=== PATIENT | female | born 1990 | race Caucasian/White ===

== ENCOUNTER 2016-08-19 05:00 | Inpatient (IN) | payer OTHER ==
--- NOTE | ~2016-08-19 | PN ---
Unit #: [id number] #: [id number] Patient: SHANA FERRELL [id number] [facility] [address] [place] [address] [id number] MR#: [id number] NAME: SHANA FERRELL. ROOM: [facility] Age: 25 Sex: F Admission Date: 08/19/2016 : 1990 Attending Physician: Dayna Mcgee M.D. Admitting Physician: Dayna Mcgee M.D. Primary Care Physician: Gerardo Arce Jr., D.OAmanda FELIPE PROGRESS NOTES DATE 08/21/2016 DISCUSSION Ms. Ferrell is a 25-year-old white female who was seen today and chart was reviewed and case was discussed with the staff. The patient has been anxious, withdrawn though reports doing somewhat better and has been able to get up and socialize and interact and appears to be showing improvement in her mood and functioning. The patient has been taking medications and tolerating them fairly well with no reported side effects. MENTAL STATUS EXAMINATION Young white female who was casually dressed with fair personal hygiene, appears to be in no acute distress or discomfort. She was awake and alert on interaction with intact orientation. Her mood was anxious with congruent affect. She denies any suicidal or homicidal ideations. Her insight and judgement remains slightly impaired. TREATMENT PLAN 1. We will continue her on her treatment protocol. We will monitor her response and make further adjustments as needed. 2. We will continue to follow up. Dictated by... Crescencio Queen/renuka TD: 08/22/2016 03:46 JOB #: [id number] Unit #: [id number] #: [id number] Patient: SHANA FERRELL PROGRESS NOTES Page 1 of 1 X Dayna Mcgee MD PROGRESS NOTE
--- NOTE | ~2016-08-19 | PA ---
Unit #: [id number] #: [id number] Patient: SHANA FERRELL [id number] [facility] [address] [place] [address] [id number] MR#: [id number] NAME: SHANA FERRELL ROOM: [facility] Age: 25 Sex: F Admission Date: 08/19/2016 : 1990 Date of Assessment: Attending Physician: Dayna Mcgee M.D. Admitting Physician: Dayna Mcgee M.D. Primary Care Physician: Gerardo Arce Jr., D.OAmanda PSYCHIATRIC ASSESSMENT DATE OF SERVICE 08/19/2016. IDENTIFYING DATA Ms. Ferrell is a 25-year-old white female, who is a resident of [place], [place], and was transferred to us from [facility] Emergency Room on a voluntary basis. CHIEF COMPLAINT "I've been depressed and I was having suicidal thoughts." HISTORY OF PRESENT ILLNESS Ms. Ferrell is a 25-year-old white female, who was transferred to us from emergency room at [facility] where she presented stating that she was depressed and that she has been having suicidal ideation with no specific plan and she showed up to work intoxicated and they sent her home and that she has been drinking three mixed drinks with vodka and snorting half a bump of ice and reports that she has not been sober for the past few days and she has been depressed because she is currently from her in the process of getting a divorce and she lost her mother a year ago and that she has been having dreams about her mother and she cannot keep it together, and she reports that she is not able to contract for safety, even though she does not have a specific suicidal plan. The patient did disclose that she has several pocket knives and has a hand gun in home and as such, was seen to be a significant threat to herself and therefore, recommendation for inpatient level of care for safety and stabilization was made and the patient was transferred to us. SUBSTANCE ABUSE HISTORY The patient reports history of alcohol, cannabis, and methamphetamine abuse, though she reports alcohol to be her drug of choice and has been drinking regularly. PAST PSYCHIATRIC HISTORY The patient has had a history of outpatient psychiatric treatment through [facility], and review of the medical records indicate that she has been on Effexor and Celexa, but has not been taking Effexor stating that it has been giving her side effects. PAST MEDICAL HISTORY No acute or chronic medical illnesses. Unit #: [id number] #: [id number] Patient: SHANA FERRELL ALLERGIES No known medication allergies. PERSONAL AND SOCIAL HISTORY A 25-year-old white female, who reports that she is single, unemployed, and lives at home and has two kids and has poor social support system. MENTAL STATUS EXAMINATION Young white female, who was casually dressed with fair personal hygiene, appears to be in no acute distress or discomfort. She was awake and alert on interaction with intact orientation to time, place, and person. Her mood was anxious and depressed with a congruent affect. Her speech was slow and restricted in content. Her thought processes were disorganized with some looseness of associations and flight of ideas and suicidal ideations. Her insight and judgment remain significantly impaired. DIAGNOSTIC IMPRESSION Psychiatric: Major depressive disorder, recurrent, moderate, without psychotic features; alcohol dependence, moderate; and methamphetamine abuse, moderate. Medical: None. Stressors: Moderate psychosocial stressors. TREATMENT PLAN 1. The patient has presented with a history of substance abuse and mood disorder and has been decompensating. We will recommend inpatient hospitalization for safety and stabilization. We will start her back on her home medications. We will adjust the medications and monitor response. 2. Supportive therapy was provided to the patient. ESTIMATED LENGTH OF STAY 5 to 7 days. ABILITY TO HELP SELF Limited. WILLINGNESS TO HELP SELF The patient appears to be willing to help self. STRENGTHS 1. Communicative. 2. Cooperative. PROBLEMS 1. Chronic dysphoric symptoms. 2. Chronic chemical dependency. 3. Poor social support system. DISCHARGE CRITERIA This will be contingent upon the patient's ability to show resolution of her depression and anxiety and her ability to stay safe to herself, particularly after discharge from the hospital. Dictated by... Crescencio Queen/dalton Unit #: [id number] #: [id number] Patient: SHANA FERRELL TD: 08/19/2016 16:27 JOB #: [id number] PSYCHIATRIC ASSESSMENT Page 1 of 1 X Dayna Mcgee MD X PSYCHIATRIC ASSESSMENT
--- NOTE | ~2016-08-19 | PN ---
Unit #: [id number] #: [id number] Patient: SHANA FERRELL [id number] [facility] [address] [place] [address] [id number] MR#: [id number] NAME: SHANA FERRELL ROOM: [facility] Age: 25 Sex: F Admission Date: 08/19/2016 : 1990 Attending Physician: Dayna Mcgee M.D. Admitting Physician: Dayna Mcgee M.D. Primary Care Physician: Gerardo Arce Jr., D.OAmanda FELIPE PROGRESS NOTES DATE 08/22/2016 DISCUSSION Ms. Ferrell is a 25-year-old white female who was seen today and chart was reviewed and case was discussed with the staff. She has been anxious, withdrawn and rather seclusive to herself. Meanwhile, she has been cooperative with treatment recommendations and as she has been taking the medications and tolerating them fairly well with no reported side effects. MENTAL STATUS EXAMINATION personal hygiene, appears to be in no acute distress or discomfort. She was awake and alert on interaction with intact orientation. Her mood was anxious with congruent affect. She denies any suicidal or homicidal ideations. Her insight and judgement remains slightly impaired. TREATMENT PLAN 1. We will continue her on her current medications and treatment protocol. We will monitor her response to the medication and make further adjustments as needed. 2. We will continue to follow up. Dictated by... Crescencio Queen/renuka TD: 08/23/2016 02:14 JOB #: [id number] Unit #: [id number] #: [id number] Patient: SHANA FERRELL PROGRESS NOTES Page 1 of 1 X Dayna Mcgee MD PROGRESS NOTE
--- NOTE | ~2016-08-19 | DS ---
Unit #: [id number] #: [id number] Patient: SHANA FERRELL [id number] [facility] [address] [place] [address] [id number] MR#: [id number] NAME: SHANA FERRELL. ROOM: [facility] Age: 25 Sex: F Admission Date: 08/19/2016 : 1990 Discharge Date: 08/23/2016 Attending Physician: Dayna Mcgee M.D. Primary Care Physician: Gerardo Arce Jr. D.O. DISCHARGE SUMMARY IDENTIFYING DATA Ms. Ferrell is a 25-year-old single white female, who is a resident of [place], [place], and was transferred to us from [facility] Emergency Room on a voluntary basis. DISCHARGE DIAGNOSES Psychiatric: Major depressive disorder, recurrent, moderate, without psychotic features; alcohol dependence, moderate; methamphetamine abuse, moderate. Medical: None. Stressors: Mild psychosocial stressors. HISTORY OF PRESENT ILLNESS Please see initial psychiatric evaluation for details. PAST PSYCHIATRIC HISTORY Please see initial psychiatric evaluation for details. PAST MEDICAL HISTORY Please see initial psychiatric evaluation for details. HOSPITAL COURSE The patient [facility] and was oriented to the hospital environment. Routine p.r.n. medications were initiated, and she was started back on her home medications and medications were adjusted and Lamictal was increased to 100 mg a day and Celexa was increased to 40 mg a day. She was taking medications regularly and was tolerating them fairly well and was able to show a decent and therapeutic response with improvement in depression and anxiety and was denying any suicidal ideations, intent, or plan and was not seen to be a danger to self or anyone else, and as such, it was decided that she will be discharged home and will continue treatment on an outpatient basis. DISCHARGE MEDICATIONS Lamictal 100 mg a day for depression and Celexa 40 mg a day for depression. DISCHARGE CONDITION Stable. PROGNOSIS Fair. Dictated by... Unit #: [id number] #: [id number] Patient: SHANA FERRELL Dayna Mcgee M.D. IAA/modl TD: 08/24/2016 00:57 JOB #: [id number] DISCHARGE SUMMARY Page 1 of 1 X Dayna Mcgee MD DISCHARGE SUMMARY
--- NOTE | ~2016-08-19 | PN ---
Unit #: [id number] #: [id number] Patient: SHANA FERRELL [id number] [facility] [address] [place] [address] [id number] MR#: [id number] NAME: SHANA FERRELL. ROOM: [facility] Age: 25 Sex: F Admission Date: 08/19/2016 : 1990 Attending Physician: Dayna Mcgee M.D. Admitting Physician: Dayna Mcgee M.D. Primary Care Physician: Gerardo Arce Jr., D.OAmanda FELIPE PROGRESS NOTES DATE August 20, 2016 DISCUSSION Ms. Ferrell is a 25-year-old white female, who was seen today and chart was reviewed and the case was discussed with the staff. The patient has been anxious, withdrawn, and rather seclusive to herself and has been exhibiting persistent depressive symptoms. Meanwhile, she has been taking the medications and tolerating them fairly well with no reported side effects. MENTAL STATUS EXAMINATION Young white female, who was casually dressed with fair personal hygiene and appears to be in no acute distress or discomfort. She was awake and alert on interaction with intact orientation. Her mood was anxious and depressed with a congruent affect. The patient reports having suicidal ideations, but denies any homicidal ideations. Her insight and judgment remain slightly impaired. TREATMENT PLAN 1. We will continue her on her current medications and treatment protocol, and will monitor her response to the medications, and make further adjustments as needed. 2. We will continue to followup. Dictated by... Crescencio Queen/my TD: 08/21/2016 08:55 JOB #: [id number] Unit #: [id number] #: [id number] Patient: SHANA FERRELL PROGRESS NOTES Page 1 of 1 X Dayna Mcgee MD PROGRESS NOTE
--- NOTE | ~2016-08-19 | HP ---
Unit #: [id number] #: [id number] Patient: SHANA FERRELL [id number] [place] [address] [id number] MR#: [id number] NAME: SHANA FERRELL. ROOM: [facility] Age: 25 Sex: F Admission Date: 08/19/2016 : 1990 Attending Physician: Dayna Mcgee M.D. Admitting Physician: Dayna Mcgee M.D. Primary Care Physician: Gerardo Arce Jr., D.O. HISTORY AND PHYSICAL HISTORY OF PRESENT ILLNESS The patient is a 25-year-old female admitted to [facility] on 08/19/2016 for suicidal ideations and drug abuse. PAST MEDICAL HISTORY The patient denies. PAST SURGICAL HISTORY 1. Adenoids 2. 3. Bilateral tubal ligation SOCIAL HISTORY She works at [email or web address]. She lives with her two kids. She smokes 15 cigarettes daily and uses alcohol and methamphetamine. FAMILY MEDICAL HISTORY Noncontributory. ALLERGIES No known drug allergies. CURRENT MEDICATIONS The patient is not on any home medications. REVIEW OF SYSTEMS CONSTITUTIONAL: No fever or chills. HEENT: Denies any sore throat, ear pain or runny nose. CARDIOVASCULAR: Denies chest pain, irregular heart rhythm or palpitations. CHEST: Denies shortness of breath or cough. No hemoptysis. GASTROINTESTINAL: Denies nausea, vomiting, diarrhea or chronic constipation. ENDOCRINE: Denies history of increased thirst or urination. No recent significant weight loss or gain. GENITOURINARY: Denies dysuria, frequency, or hematuria. SKIN: Denies any rashes. HEMATOLOGIC: Denies history of increased bleeding or bruising. MUSCULOSKELETAL: Denies any hot, swollen joints. No generalized muscle pain. NEUROLOGIC: Denies problems with vision or speech. No frequent, severe headaches. No numbness, tingling or weakness in any extremities. Denies loss of bladder or bowel control. Unit #: [id number] #: [id number] Patient: SHANA FERRELL PHYSICAL EXAM GENERAL: She is awake, alert and oriented in no acute distress. VITAL SIGNS: Temperature 98.9, heart rate 89, respiration 16, blood pressure 113/78. HEIGHT: 5'8". WEIGHT: 154 pounds. SKIN: Warm and dry without rash or lesion. HEENT: Normocephalic. TMs not viewed. Oral and nasal passages clear. Conjunctivae clear. PERRLA. EOMs intact. NECK: Supple without lymphadenopathy or thyromegaly. HEART: Regular rate and rhythm without murmur. LUNGS: Clear. ABDOMEN: Soft, nontender. : Not done. EXTREMITIES: No evidence of cyanosis, clubbing or edema. Moves all without focal deficit. NEUROLOGICAL: Grossly within normal limits. Cranial Nerves: II: Visual jaramillo are intact. III, IV AND : Extraocular movements are intact. Pupils are equal, round and reactive to light. V: Facial sensation is grossly normal. VII: Facial movements and expression are normal. VIII: Auditory acuity grossly intact. IX, X: Uvula is midline. Phonation is normal. XI: Patient shrugs shoulders and turns head normally. XII: Tongue protrudes in the midline. Sensory and Motor Function: Sensory and motor sensation is grossly normal. Motor: moves all extremities well. IMPRESSION 1. Psychiatric admission. 2. Polysubstance use. RECOMMENDATIONS Psychiatric per psychiatrist. MEDICAL: No contraindication to participate in facility activities. MEDICAL PROGNOSIS Good. MEDICAL CONDITION Stable. Dictated by... Nikolay Dove/renuka TD: 08/21/2016 05:24 JOB #: [id number] Unit #: [id number] #: [id number] Patient: SHANA FERRELL HISTORY AND PHYSICAL Page 1 of 1 X LOUISE MAYORGA APRN HISTORY AND PHYSICAL
[2016-08-20 11:32] LABS: BASOPHIL% 0.5 % (0-2.5); EOSINOPHIL# 0.2 X10e3 (0-0.7); EOSINOPHIL% 2.6 % (0.0-7.0); HEMOGLOBIN 14.6 gm/dL (12.0-16.0); MEAN CELL VOLUME 94.7 FL (83-96); MEAN CORPUSCULAR HEMOGLOBIN 31.4 PG (28-34); MEAN CORPUSCULAR HGB CONC 33.1 g/dL (30-36); MEAN PLATELET VOLUME 9.7 FL (6.5-11.5); MONOCYTE# 0.7 X10e3 (0-1.0); MONOCYTE% 8.7 % (3.0-12.0); NEUTROPHIL# 4.2 X10e3 (1.5-7.1); NEUTROPHIL% 51.2 % (40-75); PLATELET COUNT 270 X10e3 (140-420); RED BLOOD COUNT 4.64 X10e (3.90-5.30); RED CELL DISTRIBUTION WIDTH 12.5 % (11.0-15.5); WHITE BLOOD COUNT 8.1 X10e3 (4.0-10.5)
[2016-08-20 11:33] LABS: DIFF IND NO
[2016-08-20 11:42] LABS: URINE APPEARANCE TURBID; URINE BILIRUBIN NEG (NEG); URINE BLOOD NEG (NEG); URINE COLOR DK YELLOW; URINE GLUCOSE NEG (NEG); URINE KETONE NEG (NEG); URINE LEUKOCYTE ESTERASE NEG (NEG); URINE NITRATE NEG (NEG); URINE PROTEIN NEG (NEG); URINE SPECIFIC GRAVITY 1.021 (1.003-1.035)
[2016-08-20 11:45] LABS: ALBUMIN SERUM 3.9 g/dL (3.5-5.0); BILIRUBIN,TOTAL 0.5 mg/dL (0.2-2.0); BUN/CREATININE RATIO 12.22; CALCIUM SERUM 9.3 mg/dL (8.4-10.2); CREATININE SERUM 0.9 mg/dL (0.6-1.4); GLOM FILT RATE Estimated 89.6 mL/min (>60); POTASSIUM 3.6 mmol/L (3.5-5.1); PROTEIN TOTAL SERUM 6.5 g/dL (6.0-8.3)
[2016-08-20 12:50] LABS: AMPHETAMINE POS (NEG); BARBITURATES NEG (NEG); BENZODIAZEPINES NEG (NEG); COCAINE NEG (NEG); MARIJUANA NEG (NEG); OPIATES NEG (NEG); TRICYCLIC ANTIDEPRESSANTS NEG (NEG); U METHADONE NEG (NEG)
== END 2016-08-23 11:00 | DRG 885 ==
LOC: P1E 08:03
PROVIDERS: Psychiatry & Neurology Psychiatry
DX: F33.1 Major depressive disorder, recurrent, moderate (principal); F15.10 Other stimulant abuse, uncomplicated; F10.20 Alcohol dependence, uncomplicated
CPT/HCPCS: 80053; 80307; 81003; 84703; 85025; 86592